=== PATIENT | male | born 1960 | race Caucasian/White ===

== ENCOUNTER 2021-12-29 08:00 | Outpatient (CLI) | payer BC, OTHER ==
--- NOTE | 2021-12-29 17:23 | XRAY Report ---
PROCEDURE: Ribs w/PA Chest LT INDICATIONS: LEFT SIDED RIB PAIN TECHNIQUE: 3 views of the left ribs were acquired, along with a single view chest. COMPARISON: Chest radiograph dated 09/05/2015 FINDINGS: Surgical changes and devices: None. Bones and chest wall: No fractures or dislocations. No suspicious bony lesions. Overlying soft tis sues appear unremarkable. Lungs and pleura: No pleural effusions or pneumothorax. Lungs appear clear. Mediastinum: Mediastinal contours appear normal. Heart size is normal. IMPRESSION: Views displaced left rib fracture is seen. No acute cardiopulmonary pathology. Reviewed by: Noel Sahu MD on 12/29/2021 5:21 PM PDT Approved by: Noel Sahu MD on 12/29/2021 5:21 PM PDT Station ID: [id number]
== END 2021-12-29 23:59 | disposition home or self-care (01) ==
LOC: DI.S 08:00
PROVIDERS: ATTEND Registered Nurse
DX: R07.81 Pleurodynia (principal)

== ENCOUNTER 2023-06-12 08:00 | Outpatient (CLI) | payer BC ==
--- NOTE | 2023-06-12 13:43 | XRAY Report ---
PROCEDURE: Cervical Spine 2 View INDICATIONS: CERVICAL STRAIN WITH RADICULOPATHY TECHNIQUE: 3 view(s) of the cervical spine were acquired. COMPARISON: None. FINDINGS: Bones: No fractures or dislocations to the T1 level. The lateral masses of C1 appear intact on the odontoid view. No suspicious bony lesions. Cervical spondylosis is centered at C5-C6 and C6-C7. The re is disc height loss and uncovertebral joint hypertrophy at these levels. There is bilateral cervic al facet arthropathy as well in the mid cervical region. Soft tissues: No prevertebral soft tissue swelling. IMPRESSION: Cervical spondylosis. No acute bony abnormality. Reviewed by: Chase Sanchez MD on 06/12/2023 1:42 PM PST Approved by: Chase Sanchez MD on 06/12/2023 1:42 PM [facility] [[email or web address] Station ID: [id number]
== END 2023-06-12 23:59 | disposition home or self-care (01) ==
LOC: DI.S 08:00
PROVIDERS: ATTEND Physician Assistant Medical
DX: M47.22 Other spondylosis with radiculopathy, cervical region (principal)